=== PATIENT | female | born 1950 | race Caucasian/White ===

== ENCOUNTER 2024-05-20 07:17 | Day surgery (SDC) | payer OTHER, MEDICARE ==
[2024-05-18 11:14] VITALS: BMI 24.6
[2024-05-20] MEDS ORDERED: LIDOCAINE HCL/PF 1% SDV 5ML VIAL ONE (07:28)
[2024-05-20] MEDS ORDERED: BSS (NA/CA/MG/K) BALANCED SALT SOLUTION OPHTH SOLN 15 ML BOTTLE ONE (07:28)
[2024-05-20] MEDS ORDERED: NEO/POLYMYX B SULF/DEXAMETH OPHTHALMIC 5ML BOTTLE ONE (07:28)
[2024-05-20] MEDS ORDERED: LIDOCAINE 1% P/F 10 MG/ML VIAL ONE (07:28)
[2024-05-20] MEDS ORDERED: TETRACAINE 0.5% OPHTH SOLN 2 ML BOTTLE ONE (07:28)
[2024-05-20] MEDS ORDERED: CARBACHOL 0.01% INTRA-OCULAR 1.5 ML VIAL ONE (07:28)
[2024-05-20] MEDS ORDERED: EPINEPHrine/PF 1 MG/1 ML (1:1,000) AMPULE ONE (07:28)
[2024-05-20] MEDS: TROPICAMIDE 1% OPHTH SOLN 15 ML BOTTLE ONE (07:30)
[2024-05-20] MEDS: CIPROFLOXACIN 0.3% EYE DROPS 5 ML BOTTLE ONE (07:30)
[2024-05-20] MEDS: PHENYLEPHRINE 2.5% OPTHALMIC DROP 2ML BOTTLE ONE (07:30)
[2024-05-20] MEDS: CYCLOPENTOLATE 2% OPHTH SOLN 2 ML BOTTLE ONE (07:30)
[2024-05-20 07:34] VITALS: RESP 18; TEMP 97.2
[2024-05-20] MEDS ORDERED: MIDAZOLAM HCL 2 MG/2 ML SINGLE DOSE VIAL ONE (08:47)
[2024-05-20 09:20] VITALS: PULSE 62
[2024-05-20 09:51] VITALS: BP 122/54
== END 2024-05-20 09:51 | disposition home or self-care (01) ==
LOC: FASU 07:17
PROVIDERS: ATTEND Ophthalmology
PROC: 08RJ3JZ Replacement of Right Lens with Synthetic Substitute, Percutaneous Approach (ICD-10-PCS; principal; 2024-05-20 08:54)
DX: H26.8 Other specified cataract (principal)
CPT/HCPCS: 66984; V2632

== ENCOUNTER 2024-07-01 07:53 | Day surgery (SDC) | payer OTHER, MEDICARE ==
[2024-06-23 16:47] VITALS: BMI 24.6
[2024-07-01] MEDS: OFLOXACIN 0.3% OPHTHALMIC SOLUTION 5 ML BOTTLE ONE (08:05)
[2024-07-01] MEDS: TROPICAMIDE 1% OPHTH SOLN 15 ML BOTTLE ONE (08:05)
[2024-07-01] MEDS: KETOROLAC TROMETHAMINE 0.5% EYE DROP 1 DROP DROPS ONE (08:05)
[2024-07-01] MEDS: PHENYLEPHRINE 2.5% OPTHALMIC DROP 2ML BOTTLE ONE (08:05)
[2024-07-01] MEDS: CYCLOPENTOLATE HCL 1% OPHTH SOLN 2 ML BOTTLE ONE (08:05)
[2024-07-01 08:15] VITALS: RESP 19
[2024-07-01] MEDS ORDERED: TETRACAINE 0.5% OPHTH SOLN 2 ML BOTTLE ONE (08:26)
[2024-07-01] MEDS ORDERED: CARBACHOL 0.01% INTRA-OCULAR 1.5 ML VIAL ONE (08:26)
[2024-07-01] MEDS ORDERED: BSS (NA/CA/MG/K) BALANCED SALT SOLUTION OPHTH SOLN 15 ML BOTTLE ONE (08:26)
[2024-07-01] MEDS ORDERED: NEO/POLYMYX B SULF/DEXAMETH OPHTHALMIC 5ML BOTTLE ONE (08:26)
[2024-07-01] MEDS ORDERED: MIDAZOLAM HCL 2 MG/2 ML SINGLE DOSE VIAL ONE (09:55)
[2024-07-01] MEDS ORDERED: DEXAMETHASONE SOD PHOSPHATE 4 MG/1 ML VIAL ONE (09:57)
[2024-07-01] MEDS ORDERED: ONDANSETRON 4 MG/2 ML VIAL ONE (09:57)
[2024-07-01 10:27] VITALS: TEMP 98
[2024-07-01 10:52] VITALS: BP 115/55; PULSE 66
== END 2024-07-01 11:04 | disposition home or self-care (01) ==
LOC: FASU 07:53
PROVIDERS: ATTEND Ophthalmology
PROC: 08RK3JZ Replacement of Left Lens with Synthetic Substitute, Percutaneous Approach (ICD-10-PCS; principal; 2024-07-01 10:00)
DX: H26.8 Other specified cataract (principal)
CPT/HCPCS: 66984; V2632